=== PATIENT | female | born 1955 | race Caucasian/White ===

== ENCOUNTER → 2019-09-15 | Outpatient (CLI) | payer OTHER ==
--- NOTE | 2019-09-20 18:09 | REPMRS ---
Patient History The patient states she has not had a clinical breast exam in over a year. Patient is postmenopausal and is nulliparous. Family history of colorectal cancer in maternal aunt, breast cancer in paternal aunt, colorectal cancer in mother, lung and bone cancer in paternal grandfather. The Lazaro Yin lifetime risk for breast cancer is 12.8%. Digital Mammo Screening Bilat: September 15, 2019 - Exam #: [id number] Bilateral CC and MLO view(s) were taken. Technologist: Paulina Morel, Technologist Prior study comparison: 2016, digital mammo screening bilat, [facility]. FINDINGS: The breast tissue is extremely dense which could obscure a lesion on mammography. There has been no change in the appearance of the mammogram from the prior studies. There is a moderate amount of residual fibroglandular tissue which is fairly symmetric. There is no interval development of dominant mass, areas of architectural distortion, or clustered microcalcification typical of malignancy. Assessment: BI-RADS/ACR category 1 mammogram. Negative Mammogram. Recommendation Routine screening mammogram in 1 year (for women over age 40). This mammogram was interpreted with the aid of an FDA-approved computer-aided dectection system. Electronically Signed By: Sam Weston MD 09/20/19 [id number]
== END ==
LOC: M RAD 09:37
PROVIDERS: ATTEND Nurse Practitioner Primary Care
DX: Z12.31 Encounter for screening mammogram for malignant neoplasm of breast (principal)